=== PATIENT | male | born 1965 | race African-American/Black ===

== ENCOUNTER 2019-06-25 17:44 | Inpatient (IN) ==
[2019-06-25] MEDS ORDERED: ONDANSETRON 4 MG/2 ML VIAL IV STA (18:27)
[2019-06-25] MEDS ORDERED: MORPHINE 4 MG/1 ML VIAL IV STA (18:27)
[2019-06-25 18:37] LABS: Basophils % 0.5 % (0.0-0.8); Eosinophils # 0.1 10*3/uL (0.0-0.87); Eosinophils % 1.1 % (0.00-10.9); Hematocrit 43.7 VOL% (42.0-52.0); Hemoglobin 13.7 GM/DL (14.0-18.0); Immature Granulocytes % 0.5 %; Immature Granulocytes Absolute 0.03 #; Lymphocytes % 18.4 % (21.2-54.2); Mean Corpuscular HGB Conc 31.4 GM/DL (32-36); Mean Corpuscular Volume 90.5 FL (87-102); Mean Platelet Volume 10.5 FL (9.6-12.0); Monocytes % 9.9 % (1.7-12.7); Neutrophils % 69.6 % (38.7-73.9); Platelet Count 149 T/CUMM (130-400); Red Blood Count 4.83 MC/CUMM (3.8-5.5); Red Cell Distribution Width 14.8 % (9.3-17.3); White Blood Count 5.7 T/CUMM (4-12)
[2019-06-25 18:44] LABS: INR 1.2; PT Patient Result 12.5 SECS (9.6-12.2)
[2019-06-25 19:01] LABS: Alanine Aminotransferase 31 U/L (16-61); Albumin 4.2 G/DL (3.4-5.0); Alkaline Phosphatase 174 U/L (45-117); Aspartate Amino Transferase 114 U/L (0-37); Blood Urea Nitrogen 43 MG/DL (7-18); CKMB % 0.2 %; Calcium 9.4 MG/DL (8.5-10.1); Estimated Glom Filtration Rate 6 ML/MIN; Glucose 140 MG/DL (74-106); Osmolality,Calculated 285.8 MOS/KG (273-304); Total Protein 9.3 G/DL (6.4-8.3)
[2019-06-26] MEDS ORDERED: ONDANSETRON 4 MG/2 ML VIAL IV PRN (01:50)
[2019-06-26] MEDS ORDERED: SODIUM CHLORIDE 0.9% 500 ML IV SCH (01:50)
[2019-06-26 04:19] LABS: Albumin 3.7 G/DL (3.4-5.0); Bilirubin,Total 0.6 MG/DL (0.2-1.0); Calcium 8.7 MG/DL (8.5-10.1); Osmolality,Calculated 296.3 MOS/KG (273-304); Total Protein 7.8 G/DL (6.4-8.3)
[2019-06-26 04:30] LABS: CKMB % 0.2 %
[2019-06-26 04:34] LABS: Troponin I 0.103 NG/ML (0.00-0.045)
[2019-06-26] MEDS ORDERED: POTASSIUM CHLORIDE 10 MEQ TABLET PO ONE (05:30)
[2019-06-26] MEDS ORDERED: MONTELUKAST 10 MG TABLET PO PRN (06:39)
[2019-06-26] MEDS ORDERED: NON-FORMULARY MEDICATION (Sucroferric Oxyhydroxide [Velphoro] 500 MG) PO SCH (06:45)
[2019-06-26 08:40] LABS: CKMB % 0.2 %
[2019-06-26 08:41] LABS: Troponin I 0.104 NG/ML (0.00-0.045)
[2019-06-26] MEDS: ASPIRIN CHEW 81 MG TABLET PO SCH (10:36)
[2019-06-26] MEDS: PANTOPRAZOLE 40 MG TABLET PO SCH ×2 (10:37→17:49)
[2019-06-26] MEDS: MIDODRINE 5 MG TABLET PO SCH ×2 (11:18→21:39)
[2019-06-26] MEDS: NON-FORMULARY MEDICATION (Sucroferric Oxyhydroxide [Velphoro] 1,000 MG) PO SCH ×3 (11:30→18:52)
[2019-06-26] MEDS: RIVAROXABAN 2.5 MG TABLET PO SCH ×2 (11:31→21:40)
[2019-06-26] MEDS ORDERED: POTASSIUM CHLORIDE 20 MEQ TABLET PO ONE (12:20)
[2019-06-26 15:17] LABS: CKMB % 0.3 %
[2019-06-26 15:19] LABS: Troponin I 0.081 NG/ML (0.00-0.045)
[2019-06-26] MEDS ORDERED: ROSUVASTATIN 20 MG TABLET PO SCH (21:00)
[2019-06-27 08:20] LABS: Basophils % 0.7 % (0.0-0.8); Eosinophils # 0.1 10*3/uL (0.0-0.87); Eosinophils % 1.5 % (0.00-10.9); Hematocrit 39.6 VOL% (42.0-52.0); Hemoglobin 12.1 GM/DL (14.0-18.0); Immature Granulocytes % 0.2 %; Immature Granulocytes Absolute 0.01 #; Lymphocytes # 0.7 10*3/uL (1.4-4.0); Lymphocytes % 15.4 % (21.2-54.2); Mean Corpuscular HGB Conc 30.6 GM/DL (32-36); Mean Corpuscular Volume 91.9 FL (87-102); Monocytes % 9.7 % (1.7-12.7); Neutrophils % 72.5 % (38.7-73.9); Platelet Count 144 T/CUMM (130-400); Red Blood Count 4.31 MC/CUMM (3.8-5.5); Red Cell Distribution Width 14.9 % (9.3-17.3); White Blood Count 4.5 T/CUMM (4-12)
[2019-06-27 08:36] LABS: Calcium 8.7 MG/DL (8.5-10.1); Osmolality,Calculated 282.7 MOS/KG (273-304)
[2019-06-27] MEDS ORDERED: MULTIVITAMIN (CENTRUM) TABLET PO SCH (09:00)
[2019-06-27] MEDS: MIDODRINE 5 MG TABLET PO SCH (09:33)
[2019-06-27] MEDS: ASPIRIN CHEW 81 MG TABLET PO SCH (09:33)
[2019-06-27] MEDS: PANTOPRAZOLE 40 MG TABLET PO SCH ×2 (09:33→16:02)
[2019-06-27] MEDS: NON-FORMULARY MEDICATION (Sucroferric Oxyhydroxide [Velphoro] 1,000 MG) PO SCH ×3 (09:34→17:32)
[2019-06-27] MEDS: RIVAROXABAN 2.5 MG TABLET PO SCH (09:36)
[2019-06-27 15:55] VITALS: BP 115/50
== END 2019-06-27 18:55 | disposition home or self-care (01) | DRG 312 ==
LOC: EDUNIT# → EDBD → N.ED 17:44 → N.EDINP 23:19 → N.TELEN 06-26 00:26
PROVIDERS: ADMIT Hospitalist; ATTEND Hospitalist

== ENCOUNTER 2019-10-19 13:32 | Inpatient (IN) ==
[2019-10-19] MEDS ORDERED: SODIUM CHLORIDE 0.9% 250 ML IV STA ×2 (14:00→16:30)
[2019-10-19 14:29] LABS: Basophils % 0.7 % (0.0-0.8); Eosinophils % 0.5 % (0.00-10.9); Hematocrit 30.7 VOL% (42.0-52.0); Immature Granulocytes % 0.7 %; Immature Granulocytes Absolute 0.03 #; Lymphocytes # 0.5 10*3/uL (1.4-4.0); Lymphocytes % 10.9 % (21.2-54.2); Mean Corpuscular HGB Conc 29.3 GM/DL (32-36); Mean Corpuscular Volume 96.2 FL (87-102); Mean Platelet Volume 11.1 FL (9.6-12.0); NRBC # 0.03 10*3/uL; Neutrophils % 77.2 % (38.7-73.9); Platelet Count 146 T/CUMM (130-400); Red Blood Count 3.19 MC/CUMM (3.8-5.5); Red Cell Distribution Width 17.6 % (9.3-17.3); White Blood Count 4.4 T/CUMM (4-12)
[2019-10-19] MEDS ORDERED: SODIUM CHLORIDE 0.9% 500 ML IV STA (14:41)
[2019-10-19 14:46] LABS: Albumin 3.3 G/DL (3.4-5.0); Calcium 8.7 MG/DL (8.5-10.1); Osmolality,Calculated 281.7 MOS/KG (273-304); Total Protein 8.3 G/DL (6.4-8.3)
[2019-10-19 15:01] LABS: INR 1.3; PT Patient Result 13.6 SECS (9.6-12.2); Partial Thromboplastin Time 27.8 SECS (20.8-36.0)
[2019-10-19] MEDS ORDERED: cefTRIAXone 1,000 MG in SODIUM CHLORIDE 0.9% 100 ML IV STA (15:14)
[2019-10-19] MEDS ORDERED: PANTOPRAZOLE 40 MG VIAL IV STA (15:14)
[2019-10-19] MEDS ORDERED: SODIUM CHLORIDE 0.9% 1,000 ML IV PRN (15:35)
[2019-10-19] MEDS ORDERED: ONDANSETRON 4 MG/2 ML VIAL IV PRN (16:20)
[2019-10-19] MEDS ORDERED: SODIUM CHLORIDE 0.9% 1,000 ML IV SCH (16:30)
[2019-10-19] MEDS ORDERED: NOREPINEPHRINE 4 MG/4 ML VIAL IV ONE (18:37)
[2019-10-19] MEDS: NOREPINEPHRINE 8 MG in SODIUM CHLORIDE 0.9% 242 ML IV PRN (18:44)
[2019-10-19] MEDS: PANTOPRAZOLE 40 MG VIAL IV SCH (20:35)
[2019-10-20] MEDS: NOREPINEPHRINE 8 MG in SODIUM CHLORIDE 0.9% 242 ML IV PRN (00:24)
[2019-10-20] MEDS ORDERED: MORPHINE 4 MG/1 ML VIAL IV ONE ×2 (02:16→14:10)
[2019-10-20 05:09] LABS: Basophils # 0.1 10*3/uL (0.0-0.2); Basophils % 0.7 % (0.0-0.8); Eosinophils % 0.6 % (0.00-10.9); Hematocrit 34.9 VOL% (42.0-52.0); Hemoglobin 10.3 GM/DL (14.0-18.0); Immature Granulocytes % 0.4 %; Immature Granulocytes Absolute 0.03 #; Lymphocytes # 0.6 10*3/uL (1.4-4.0); Lymphocytes % 9.1 % (21.2-54.2); Mean Corpuscular HGB Conc 29.5 GM/DL (32-36); Mean Corpuscular Volume 93.8 FL (87-102); Mean Platelet Volume 10.8 FL (9.6-12.0); Monocytes % 11.6 % (1.7-12.7); NRBC # 0.04 10*3/uL; Neutrophils % 77.6 % (38.7-73.9); Platelet Count 171 T/CUMM (130-400); Red Blood Count 3.72 MC/CUMM (3.8-5.5); Red Cell Distribution Width 18.9 % (9.3-17.3); White Blood Count 6.7 T/CUMM (4-12)
[2019-10-20 05:39] LABS: Osmolality,Calculated 284.5 MOS/KG (273-304)
[2019-10-20] MEDS: NOREPINEPHRINE 16 MG in SODIUM CHLORIDE 0.9% 234 ML IV PRN (07:13)
[2019-10-20] MEDS ORDERED: GLUCAGON 1 MG VIAL IM PRN (08:51)
[2019-10-20] MEDS ORDERED: DEXTROSE 10% 250 ML BAG IV PRN (09:01)
[2019-10-20] MEDS: PANTOPRAZOLE 40 MG VIAL IV SCH ×2 (09:16→20:57)
[2019-10-20] MEDS ORDERED: VANCOMYCIN INJ 750 MG in SODIUM CHLORIDE 0.9% 250 ML IV PRN (09:41)
[2019-10-20] MEDS ORDERED: VANCOMYCIN INJ 2,000 MG in SODIUM CHLORIDE 0.9% 500 ML IV ONE (10:30)
[2019-10-20] MEDS ORDERED: ZALEPLON 5 MG CAPSULE PO PRN (11:32)
[2019-10-20 11:49] LABS: Hematocrit 33.4 VOL% (42.0-52.0); Hemoglobin 10.1 GM/DL (14.0-18.0)
[2019-10-20] MEDS: MOMETASONE 50 MCG NASAL SPRAY 17 GM BOTTLE BOTH NARES SCH (11:56)
[2019-10-20] MEDS: AZELASTINE NASAL 137 MCG/SPRAY 30 ML BOTTLE BOTH NARES SCH ×2 (11:56→21:03)
[2019-10-20] MEDS: fentaNYL 50 MCG/HR PATCH TRANSDERM SCH (11:56)
[2019-10-20] MEDS: INSULIN REGULAR 100 UNIT/ML SUBCUT SCH ×3 (11:58→20:58)
[2019-10-20] MEDS ORDERED: NON-FORMULARY MEDICATION (Sucroferric Oxyhydroxide [Velphoro] 1,000 MG) PO SCH (13:00)
[2019-10-20] MEDS: cefTRIAXone 1,000 MG in SYRINGE 1 EACH IV SCH (16:29)
[2019-10-20 18:06] LABS: Hematocrit 34.9 VOL% (42.0-52.0); Hemoglobin 10.5 GM/DL (14.0-18.0)
[2019-10-20] MEDS: CINACALCET 30 MG TABLET PO SCH (20:58)
[2019-10-20] MEDS: HydrOXYzine PAMOATE 25 MG CAPSULE PO PRN (23:20)
[2019-10-21 01:02] LABS: Hematocrit 35.2 VOL% (42.0-52.0); Hemoglobin 10.4 GM/DL (14.0-18.0)
[2019-10-21] MEDS: NOREPINEPHRINE 16 MG in SODIUM CHLORIDE 0.9% 234 ML IV PRN ×2 (02:25→19:45)
[2019-10-21 03:50] LABS: Albumin 3.2 G/DL (3.4-5.0); Bilirubin,Total 0.7 MG/DL (0.2-1.0); Calcium 8.7 MG/DL (8.5-10.1); Osmolality,Calculated 275.1 MOS/KG (273-304); Total Protein 8.6 G/DL (6.4-8.3)
[2019-10-21 03:54] LABS: Basophils # 0.1 10*3/uL (0.0-0.2); Basophils % 0.7 % (0.0-0.8); Eosinophils # 0.2 10*3/uL (0.0-0.87); Eosinophils % 2.1 % (0.00-10.9); Hemoglobin 10.1 GM/DL (14.0-18.0); Immature Granulocytes % 0.7 %; Immature Granulocytes Absolute 0.05 #; Lymphocytes # 0.9 10*3/uL (1.4-4.0); Mean Corpuscular HGB Conc 28.9 GM/DL (32-36); Mean Corpuscular Volume 95.6 FL (87-102); Mean Platelet Volume 10.6 FL (9.6-12.0); Monocytes % 12.7 % (1.7-12.7); NRBC # 0.04 10*3/uL; Neutrophils % 71.8 % (38.7-73.9); Platelet Count 163 T/CUMM (130-400); Red Blood Count 3.66 MC/CUMM (3.8-5.5); Red Cell Distribution Width 18.5 % (9.3-17.3); White Blood Count 7.2 T/CUMM (4-12)
[2019-10-21 04:18] LABS: Hypochromasia 1+
[2019-10-21 04:19] LABS: Platelet Estimate Adequate
[2019-10-21] MEDS: INSULIN REGULAR 100 UNIT/ML SUBCUT SCH ×4 (07:46→21:14)
[2019-10-21] MEDS ORDERED: LIDOCAINE 2% 5 ML VIAL ONE (09:00)
[2019-10-21] MEDS ORDERED: ETOMIDATE 20 MG/10 ML VIAL IV ONE (09:00)
[2019-10-21] MEDS: AZELASTINE NASAL 137 MCG/SPRAY 30 ML BOTTLE BOTH NARES SCH ×2 (09:52→20:45)
[2019-10-21] MEDS: PANTOPRAZOLE 40 MG VIAL IV SCH ×2 (09:52→20:42)
[2019-10-21] MEDS: MOMETASONE 50 MCG NASAL SPRAY 17 GM BOTTLE BOTH NARES SCH (10:03)
[2019-10-21] MEDS: METOCLOPRAMIDE 10 MG/2 ML VIAL IV SCH ×2 (12:21→18:20)
[2019-10-21] MEDS ORDERED: VANCOMYCIN INJ 750 MG in SODIUM CHLORIDE 0.9% 250 ML IV ONE (17:00)
[2019-10-21] MEDS: HydrOXYzine PAMOATE 25 MG CAPSULE PO PRN (20:40)
[2019-10-21] MEDS: CINACALCET 30 MG TABLET PO SCH (20:41)
[2019-10-21] MEDS: cefTRIAXone 1,000 MG in SYRINGE 1 EACH IV SCH (20:48)
[2019-10-22] MEDS: METOCLOPRAMIDE 10 MG/2 ML VIAL IV SCH ×5 (00:11→23:52)
[2019-10-22] MEDS: NOREPINEPHRINE 16 MG in SODIUM CHLORIDE 0.9% 234 ML IV PRN ×3 (03:05→19:47)
[2019-10-22] MEDS ORDERED: diphenhydrAMINE 50 MG/1 ML VIAL ONE (04:41)
[2019-10-22] MEDS: diphenhydrAMINE 50 MG/1 ML VIAL IV PRN ×2 (04:50→23:52)
[2019-10-22] MEDS: PHENYLEPHRINE INJ 160 MG in SODIUM CHLORIDE 0.9% 234 ML IV PRN (05:50)
[2019-10-22 08:19] LABS: Calcium 8.4 MG/DL (8.5-10.1); Osmolality,Calculated 267.4 MOS/KG (273-304)
[2019-10-22 08:26] LABS: Basophils % 0.4 % (0.0-0.8); Eosinophils % 0.3 % (0.00-10.9); Hematocrit 37.9 VOL% (42.0-52.0); Immature Granulocytes Absolute 0.07 #; Lymphocytes # 0.7 10*3/uL (1.4-4.0); Lymphocytes % 9.9 % (21.2-54.2); Mean Corpuscular Volume 96.9 FL (87-102); Mean Platelet Volume 11.2 FL (9.6-12.0); Monocytes % 11.8 % (1.7-12.7); NRBC # 0.11 10*3/uL; Neutrophils % 76.6 % (38.7-73.9); Platelet Count 171 T/CUMM (130-400); Red Blood Count 3.91 MC/CUMM (3.8-5.5); White Blood Count 7.4 T/CUMM (4-12)
[2019-10-22] MEDS: INSULIN REGULAR 100 UNIT/ML SUBCUT SCH ×2 (08:32→16:21)
[2019-10-22 08:44] LABS: Burr Cells Slight; Ovalocytes Slight; Platelet Estimate Adequate
[2019-10-22 08:45] LABS: Hypochromasia Slight
[2019-10-22] MEDS ORDERED: DEXTROSE 50% 25 GM/50 ML VIAL IV ONE (09:27)
[2019-10-22] MEDS ORDERED: HYDROCORTISONE 100 MG VIAL ONE (09:29)
[2019-10-22] MEDS ORDERED: HYDROCORTISONE 100 MG VIAL IV ONE (09:32)
[2019-10-22] MEDS: DEXTROSE 10% 500 ML IV SCH ×2 (09:33→19:44)
[2019-10-22] MEDS ORDERED: SODIUM CHLORIDE 0.9% 500 ML IV ONE ×2 (09:38→12:00)
[2019-10-22] MEDS ORDERED: DEXTROSE 50% 25 GM/50 ML SYRINGE IV ONE (10:00)
[2019-10-22] MEDS: PANTOPRAZOLE 40 MG VIAL IV SCH ×2 (10:45→21:41)
[2019-10-22] MEDS: MOMETASONE 50 MCG NASAL SPRAY 17 GM BOTTLE BOTH NARES SCH ×2 (10:50→12:24)
[2019-10-22] MEDS: AZELASTINE NASAL 137 MCG/SPRAY 30 ML BOTTLE BOTH NARES SCH ×4 (10:50→21:49)
[2019-10-22] MEDS: HYDROCORTISONE 100 MG VIAL IV SCH (18:15)
[2019-10-22] MEDS: HydrOXYzine PAMOATE 25 MG CAPSULE PO PRN (21:41)
[2019-10-22] MEDS: cefTRIAXone 1,000 MG in SYRINGE 1 EACH IV SCH (21:41)
[2019-10-22] MEDS: CINACALCET 30 MG TABLET PO SCH (21:41)
[2019-10-23] MEDS: ONDANSETRON 4 MG/2 ML VIAL IV PRN ×2 (00:50→09:45)
[2019-10-23] MEDS: HYDROCORTISONE 100 MG VIAL IV SCH ×3 (00:50→17:26)
[2019-10-23] MEDS ORDERED: PROMETHAZINE INJ 25 MG in SODIUM CHLORIDE 0.9% 50 ML IV ONE (01:27)
[2019-10-23] MEDS: NOREPINEPHRINE 16 MG in SODIUM CHLORIDE 0.9% 234 ML IV PRN ×3 (03:05→18:07)
[2019-10-23 05:11] LABS: Basophils % 0.2 % (0.0-0.8); Hematocrit 40.4 VOL% (42.0-52.0); Immature Granulocytes % 1.2 %; Immature Granulocytes Absolute 0.15 #; Lymphocytes # 0.4 10*3/uL (1.4-4.0); Lymphocytes % 3.4 % (21.2-54.2); Mean Corpuscular HGB Conc 28.7 GM/DL (32-36); Mean Platelet Volume 11.2 FL (9.6-12.0); Monocytes % 7.3 % (1.7-12.7); NRBC # 0.05 10*3/uL; Neutrophils % 87.9 % (38.7-73.9); Platelet Count 155 T/CUMM (130-400); Red Blood Count 4.04 MC/CUMM (3.8-5.5); Red Cell Distribution Width 17.7 % (9.3-17.3)
[2019-10-23] MEDS: DEXTROSE 10% 500 ML IV SCH (05:35)
[2019-10-23] MEDS: METOCLOPRAMIDE 10 MG/2 ML VIAL IV SCH (05:45)
[2019-10-23 05:47] LABS: Hemoglobin 11.6 GM/DL (14.0-18.0)
[2019-10-23 05:59] LABS: Band Neutrophils 1 % (0-10); Lymphocytes 4 % (20-55); Nucleated Red Blood Cells 1 (0-5); Platelet Estimate Adequate; Segmented Neutrophils 89 % (50-85); Total Cells Counted 100
[2019-10-23 06:00] LABS: Burr Cells Slight; Ovalocytes Slight
[2019-10-23 06:05] LABS: Calcium 8.4 MG/DL (8.5-10.1); Osmolality,Calculated 280.4 MOS/KG (273-304)
[2019-10-23 06:19] LABS: CKMB % 1.3 %
[2019-10-23 06:21] LABS: Troponin I 0.393 NG/ML (0.00-0.045)
[2019-10-23] MEDS: INSULIN REGULAR 100 UNIT/ML SUBCUT SCH ×2 (08:07→17:09)
[2019-10-23] MEDS: AZELASTINE NASAL 137 MCG/SPRAY 30 ML BOTTLE BOTH NARES SCH ×2 (09:45→20:49)
[2019-10-23] MEDS: PANTOPRAZOLE 40 MG VIAL IV SCH ×2 (09:45→20:14)
[2019-10-23] MEDS: MOMETASONE 50 MCG NASAL SPRAY 17 GM BOTTLE BOTH NARES SCH (09:45)
[2019-10-23] MEDS: AZITHROMYCIN 40 MG/ML 15 ML/BOTTLE PO SCH (09:46)
[2019-10-23] MEDS: fentaNYL 50 MCG/HR PATCH TRANSDERM SCH (11:29)
[2019-10-23] MEDS ORDERED: SODIUM CHLORIDE 0.9% 1,000 ML IV ONE ×2 (11:43→16:50)
[2019-10-23 12:59] LABS: Albumin 3.6 G/DL (3.4-5.0); Bilirubin,Total 2.9 MG/DL (0.2-1.0); Calcium 8.5 MG/DL (8.5-10.1); Osmolality,Calculated 271.5 MOS/KG (273-304); Total Protein 9.2 G/DL (6.4-8.3)
[2019-10-23] MEDS ORDERED: FLUDROCORTISONE 0.1 MG TABLET PO ONE (13:17)
[2019-10-23] MEDS ORDERED: SODIUM BICARB INJ 150 MEQ in DEXTROSE 5% 850 ML IV SCH (13:30)
[2019-10-23] MEDS ORDERED: SKIN HEALING OINT (AQUAPHOR) 50 GM TUBE TOP PRN (15:15)
[2019-10-23] MEDS: SODIUM BICARB INJ 150 MEQ in DEXTROSE 5% 850 ML IV SCH ×2 (15:45→23:45)
[2019-10-23] MEDS: cefTRIAXone 1,000 MG in SYRINGE 1 EACH IV SCH (20:13)
[2019-10-23] MEDS: FLUDROCORTISONE 0.1 MG TABLET PO SCH (20:15)
[2019-10-23] MEDS: CINACALCET 30 MG TABLET PO SCH (20:45)
[2019-10-23 23:01] LABS: Albumin 3.3 G/DL (3.4-5.0); Bilirubin,Total 2.4 MG/DL (0.2-1.0); Calcium 8.3 MG/DL (8.5-10.1); Osmolality,Calculated 282.2 MOS/KG (273-304); Total Protein 8.5 G/DL (6.4-8.3)
[2019-10-24] MEDS: HYDROCORTISONE 100 MG VIAL IV SCH ×3 (01:14→16:55)
[2019-10-24] MEDS: NOREPINEPHRINE 16 MG in SODIUM CHLORIDE 0.9% 234 ML IV PRN ×4 (01:16→22:53)
[2019-10-24 02:03] VITALS: BP 81/54
[2019-10-24 04:48] LABS: Basophils % 0.1 % (0.0-0.8); Mean Corpuscular Volume 98.3 FL (87-102)
[2019-10-24 05:15] LABS: Hematocrit 40.2 VOL% (42.0-52.0); Hemoglobin 11.6 GM/DL (14.0-18.0); Immature Granulocytes % 1.2 %; Immature Granulocytes Absolute 0.13 #; Lymphocytes # 0.4 10*3/uL (1.4-4.0); Lymphocytes % 3.8 % (21.2-54.2); Mean Corpuscular HGB Conc 28.9 GM/DL (32-36); Mean Platelet Volume 11.4 FL (9.6-12.0); NRBC # 0.09 10*3/uL; Neutrophils % 87.9 % (38.7-73.9); Platelet Count 149 T/CUMM (130-400); Red Blood Count 4.09 MC/CUMM (3.8-5.5); Red Cell Distribution Width 17.9 % (9.3-17.3); White Blood Count 10.6 T/CUMM (4-12)
[2019-10-24 05:18] LABS: Calcium 8.1 MG/DL (8.5-10.1); Osmolality,Calculated 281.2 MOS/KG (273-304)
[2019-10-24 05:58] LABS: Band Neutrophils 3 % (0-10); Lymphocytes 4 % (20-55); Segmented Neutrophils 89 % (50-85); Total Cells Counted 100
[2019-10-24 05:59] LABS: Anisocytosis 1+; Platelet Estimate Normal
[2019-10-24 06:00] LABS: Burr Cells 1+; Hypochromasia Slight; Macrocytosis Slight
[2019-10-24] MEDS: PHENYLEPHRINE INJ 160 MG in SODIUM CHLORIDE 0.9% 234 ML IV PRN ×2 (07:34→18:01)
[2019-10-24] MEDS: INSULIN REGULAR 100 UNIT/ML SUBCUT SCH ×2 (07:34→16:31)
[2019-10-24] MEDS: SODIUM BICARB INJ 150 MEQ in DEXTROSE 5% 850 ML IV SCH ×2 (08:27→16:50)
[2019-10-24] MEDS ORDERED: NOREPINEPHRINE 4 MG/4 ML VIAL IV ONE (08:54)
[2019-10-24] MEDS: PANTOPRAZOLE 40 MG VIAL IV SCH ×2 (09:08→21:24)
[2019-10-24] MEDS: MOMETASONE 50 MCG NASAL SPRAY 17 GM BOTTLE BOTH NARES SCH (09:09)
[2019-10-24] MEDS: FLUDROCORTISONE 0.1 MG TABLET PO SCH ×2 (09:09→21:24)
[2019-10-24] MEDS: AZITHROMYCIN 40 MG/ML 15 ML/BOTTLE PO SCH (09:09)
[2019-10-24] MEDS: AZELASTINE NASAL 137 MCG/SPRAY 30 ML BOTTLE BOTH NARES SCH ×2 (09:09→21:27)
[2019-10-24] MEDS ORDERED: LEVOFLOXACIN INJ 500 MG in PREMIX 1 EACH IV SCH (10:00)
[2019-10-24] MEDS ORDERED: MORPHINE 4 MG/1 ML VIAL IV ONE (11:07)
[2019-10-24 12:52] LABS: ABG Base Excess -18.7 MMOL/L (-2.5-2.5); ABG HCO3 10.8 MMOL/L (20-26); ABG Oxygen Saturation 98.8 % (95-100); ABG PH 7.266 (7.35-7.45); ABG TCO2 6.5 MMOL/L (23-27)
[2019-10-24 12:54] LABS: ABG PCO2 15.7 MM HG (35-48)
[2019-10-24] MEDS ORDERED: SODIUM CHLORIDE 0.9% 1,000 ML IV ONE (15:13)
[2019-10-24] MEDS ORDERED: SODIUM BICARBONATE 50 MEQ/50 ML VIAL IV ONE ×2 (15:14→15:17)
[2019-10-24] MEDS ORDERED: VASOPRESSIN 100 UNITS in SODIUM CHLORIDE 0.9% 95 ML IV PRN (15:53)
[2019-10-24 21:06] LABS: ABG HCO3 5.9 MMOL/L (20-26); ABG PH 7.237 (7.35-7.45); ABG PO2 125.5 MM HG (80-95); ABG TCO2 6.3 MMOL/L (23-27)
[2019-10-24 21:11] LABS: ABG PCO2 14.2 MM HG (35-48)
[2019-10-24] MEDS: cefTRIAXone 1,000 MG in SYRINGE 1 EACH IV SCH (21:27)
[2019-10-24] MEDS ORDERED: VECURONIUM 10 MG VIAL IV ONE (21:34)
[2019-10-24] MEDS ORDERED: ETOMIDATE 20 MG/10 ML VIAL IV ONE (21:34)
[2019-10-24] MEDS ORDERED: fentaNYL INJ 1,250 MCG in SODIUM CHLORIDE 0.9% 225 ML IV PRN (22:09)
[2019-10-24] MEDS ORDERED: MIDAZOLAM 100 MG in SODIUM CHLORIDE 0.9% 80 ML IV PRN (22:09)
[2019-10-24] MEDS ORDERED: EPINEPHrine 1 MG/10 ML SYRINGE ONE (22:56)
[2019-10-24] MEDS ORDERED: SODIUM BICARBONATE 50 MEQ/50 ML SYRINGE IV ONE (22:56)
[2019-10-24] MEDS ORDERED: CALCIUM CHLORIDE 1,000 MG/10 ML SYRINGE IV ONE (22:56)
[2019-10-24 22:59] LABS: ABG Base Excess -21.4 MMOL/L (-2.5-2.5); ABG HCO3 9.2 MMOL/L (20-26); ABG Oxygen Saturation 98.6 % (95-100); ABG TCO2 7.7 MMOL/L (23-27)
[2019-10-24 23:03] LABS: ABG PH 7.068 (7.35-7.45)
[2019-10-25] MEDS: CINACALCET 30 MG TABLET PO SCH (00:16)
[2019-10-25] MEDS: SODIUM BICARB INJ 150 MEQ in DEXTROSE 5% 850 ML IV SCH (00:16)
== END 2019-10-24 23:26 | disposition expired | DRG 377 ==
LOC: EDUNIT# → EDBD → N.ED 13:32 → SUATTDRO 16:20 → N.EDINP 16:20 → N.CC 17:22
PROVIDERS: ADMIT Internal Medicine; ATTEND Family Medicine